=== PATIENT | male | born 1995 | race Caucasian/White ===

== ENCOUNTER 2017-07-19 11:32 | Day surgery (SDC) | payer BC ==
[2017-07-18 18:40] VITALS: BMI 61.5
[2017-07-19] VITALS (9 sets, daily range): BP systolic 145–165; BP diastolic 80–95; PULSE 98–116; RESP 14–22; Ht 180.3 cm; Wt 90.4 kg
[~2017-07-19] VITALS: Ht 180.3 cm; Wt 90.4 kg
[~2017-07-19 11:32] MED LIST: SUCCINYLCHOLINE CHLORIDE 100 MG/5 ML SYG IV ONE
[2017-07-19] MEDS ORDERED: MEPERIDINE 25 MG INJ IV PRN (12:00)
[2017-07-19] MEDS ORDERED: PROCHLORPERAZINE 10 MG INJ IV PRN (12:00)
[2017-07-19] MEDS ORDERED: DIPHENHYDRAMINE 50 MG INJ IV PRN (12:00)
[2017-07-19] MEDS ORDERED: ONDANSETRON 4 MG INJ IV PRN (12:00)
[2017-07-19] MEDS ORDERED: OXYCODONE/ACETAMINOPHEN (5/325) TAB PO PRN ×2 (12:00)
[2017-07-19] MEDS ORDERED: LABETALOL HCL 20MG INJ IV PRN (12:00)
[2017-07-19] MEDS ORDERED: FENTAnyl 50 MCG/ML VIAL IV PRN (12:00)
[2017-07-19] MEDS ORDERED: HYDROmorphONE (0.2 MG/ML) 10ML SYG IV PRN (12:00)
[2017-07-19] MEDS ORDERED: hydrALAzine 20 MG INJ IV PRN (12:00)
[2017-07-19] MEDS ORDERED: MIDAZOLAM 1 MG/ML 2 ML INJ ONE (12:36)
[2017-07-19] MEDS ORDERED: LIDOCAINE 2% (SDV) 5 ML INJ ONE (12:36)
[2017-07-19] MEDS ORDERED: PROPOFOL 20 ML ONE (12:36)
[2017-07-19] MEDS ORDERED: FENTAnyl 50 MCG/ML VIAL ONE (12:36)
[2017-07-19] MEDS ORDERED: DEXAMETHASONE 4 MG/ML 1 ML INJ IV SCH (13:00)
[2017-07-19] MEDS ORDERED: LIDOCAINE 2%/EPI 30 ML INJ ONE ×2 (13:52→14:51)
[2017-07-19] MEDS ORDERED: BACITRACIN/POLYMYXIN 28.35 GM OINT TOP ONE ×2 (13:53→14:51)
[2017-07-19] MEDS ORDERED: COCAINE 4% 4 ML TOP ONE ×2 (13:53→14:51)
[2017-07-19] MEDS ORDERED: EPINEPHrine 1 MG INJ ONE ×2 (13:53→14:51)
--- NOTE | 2017-07-19 14:29 | HPN ---
Date/Time of Note Date/Time of Note DATE: 07/19/17 TIME: 14:29 Interval H&P Admission Note Pt. seen H&P reviewed: No system changes ANDRA HERNANDEZ MD Jul 19, 2017 14:29
[2017-07-19] MEDS ORDERED: ROCURONIUM 50 MG INJ ONE (15:10)
[2017-07-19] MEDS ORDERED: PHENYLephrine 0.25% 15 ML NAS SPRAY ONE (15:10)
[2017-07-19] MEDS ORDERED: ONDANSETRON 4 MG INJ ONE (15:15)
[2017-07-19] MEDS ORDERED: DEXAMETHASONE 4 MG/ML 1 ML INJ ONE (15:15)
[2017-07-19] MEDS ORDERED: METOCLOPRAMIDE 10 MG INJ ONE (15:24)
[2017-07-19] MEDS ORDERED: FAMOTIDINE 20 MG INJ ONE (15:24)
[2017-07-19] MEDS ORDERED: HYDROmorphONE 2 MG/ML SYG ONE (15:26)
--- NOTE | 2017-07-19 15:49 | OPR ---
Date/Time of Note Date/Time of Note DATE: 07/19/17 TIME: 15:47 Operative Report Procedure Date: Jul 19, 2017 Preoperative Diagnosis DEVIATED NASAL SEPTUM, INFERIOR TURBINATE HYPERTROPHY Postoperative Diagnosis SAME Operation Performed SEPTOPLASTY, SUBMUCOUS RESECTION OF INFERIOR TURBINATES Surgeon see signature line Anesthesia Type: general Estimated Blood Loss: minimal Transfusion Required: no Specimen: none Grafts/Implants: none Complications: no Pt Condition Post Procedure: stable Disposition: PACU Indications NASAL CONGESTION Operative\Procedure Findings DNS RIGHT, ITH GREATER LEFT Procedure Description Description of procedure: The patient was identified in the holding area. We had a discussion to confirm understanding of all indications risks benefits alternatives and postoperative care associated with the operation. The patient signed informed consent was taken to the operating room. The patient was laid supine on the operating room table and general anesthesia was achieved without difficulty. The face was draped in sterile fashion and the nose was packed with 4% cocaine pledgets. The nasal septum was infiltrated with 5 cc of 1% lidocaine with epinephrine in the submucoperiosteal plane bilaterally. A right sided Estuardo incision was made and submucoperichondreal flaps were raised. The bony cartilaginous junction of the septum was identified and entered. A deviated segments of bone and cartilage were isolated. A double- action scissor was used to transect the bony deviated segment of the skull base after which a Kassie forcep was used to resect deviated segment of bone and cartilage. Care was taken to avoid excess cartilaginous resection. The flaps were returned to normal position and anterior rhinoscopy reveals midline septum. At this point the right inferior turbinate was medialized with a Sarver elevator. The Coblation wand on a setting of 6 was used to enter the turbinate in the inferior medial submucosal compartment. 10 seconds of Coblation were performed at the 3rd 2nd and 1st mehta after which the turbinate was crushed laterally into the lateral nasal wall with a Deluca elevator. The contralateral turbinate was addressed in similar fashion to complete the bilateral submucous resection and lateral fracturing of the inferior turbinates. Septal flaps were replaced and secured with a 40 fast-absorbing gut whip stitch. A Merocel pack was placed on each side. The patient was awakened, extubated and taken to the PACU in stable condition. Complications: None. ANDRA HERNANDEZ MD Jul 19, 2017 15:49
== END 2017-07-19 16:50 | disposition home or self-care (01) ==
LOC: SDS 11:32 → EDBD 14:30 → SDS 16:50
PROVIDERS: ATTEND Otolaryngology
DX: J34.2 Deviated nasal septum (principal); J34.3 Hypertrophy of nasal turbinates; J45.909 Unspecified asthma, uncomplicated
CPT/HCPCS: 30140; 30520; J1100; J1170; J2250; J2405; J2765; J3010; Z7512; Z7610; J0171; J7999

== ENCOUNTER 2018-01-12 11:24 | Day surgery (SDC) | END 2018-01-12 17:24 | disposition home or self-care (01) ==